=== PATIENT | female | born 1940 | race Caucasian/White ===

== ENCOUNTER → 2023-11-16 07:23 | Outpatient (REF) | payer MEDICARE, SELFPAY ==
[2023-11-16 09:06] LABS: % Basophils 0.6 % (0-2); % Eosinophils 1.5 % (0-6); % Immature Granulocytes 1.9 % (0-0.5); % Lymphocytes 15.3 % (20.5-51.1); % Monocytes 7.1 % (1.7-9.3); % Neutrophils 73.6 % (42.2-75.2); Absolute Eosinophils 0.1 10^3/uL (0-0.7); Absolute Immature Granulocytes 0.1 10^3/uL (0-0.05); Absolute Monocytes 0.5 10^3/uL (0.1-0.6); Hematocrit 40.8 % (37.0-47.0); Hemoglobin 13.6 g/dL (12.0-16.0); Mean Corp Hgb Conc. 33.3 g/dL (33.0-37.0); Mean Corpuscular Hgb 30.5 pg (27.0-31.0); Mean Corpuscular Volume 91.5 fL (81.0-99.0); Mean Platelet Volume 10.2 fL (7.4-10.4); Nucleated Red Blood Cells % 0 %; Platelet Count 116 10^3/uL (130-400); Red Blood Cell Count 4.46 10^6/uL (4.20-5.40); Red Cell Dist. Width 13.9 % (11.5-14.5); White Blood Cell Count 6.8 10^3/uL (4.8-10.8)
[2023-11-16 09:23] LABS: ALT (SGPT) 17 U/L (0-35); AST (SGOT) 30 U/L (14-36); Albumin 4.8 g/dl (3.5-5.0); Alkaline Phosphatase 86 U/L (38-126); Blood Urea Nitrogen 30 mg/dl (7-17); Calcium 10.2 mg/dl (8.4-10.2); Carbon Dioxide 29 mmol/L (22-30); Chloride 99 mmol/L (98-107); Glucose 88 mg/dl (70-99); HDL Cholesterol 70 mg/dl; LDL Cholesterol, Calculated 43 mg/dl; Potassium 5.3 mmol/L (3.5-5.1); Sodium 136 mmol/L (135-145); Total Bilirubin 0.6 mg/dl (0.2-1.3); Total Cholesterol 130 mg/dl (50-199); Total Protein 7.3 g/dl (6.3-8.2); Triglyceride 88 mg/dl (10-149); Very Low Density Lipoprotein 17 mg/dl (0-30); eGFR 44.36
[2023-11-16 09:48] LABS: Vitamin D, 25-OH*** 62.5 ng/mL (30-80)
[2023-11-16 10:01] LABS: TSH Reflex To Free T4 3.04 uIU/ml (0.47-4.68)
== END ==
LOC: REG 07:23
PROVIDERS: ATTENDING PHYSICIAN Nurse Practitioner Adult Health
DX: E55.9 Vitamin D deficiency, unspecified (principal); I10 Essential (primary) hypertension; E78.00 Pure hypercholesterolemia, unspecified; Z79.01 Long term (current) use of anticoagulants; Z86.711 Personal history of pulmonary embolism; I27.20 Pulmonary hypertension, unspecified
CPT/HCPCS: 36415; 80053; 80061; 82306; 84443; 85025

== ENCOUNTER → 2024-08-31 15:36 | Outpatient (REF) | payer MEDICARE, SELFPAY | LOC: REG 15:36 | PROVIDERS: ATTENDING PHYSICIAN Nurse Practitioner | DX: I71.9 Aortic aneurysm of unspecified site, without rupture (principal) | CPT/HCPCS: 36415; 82565 ==

== ENCOUNTER → 2024-09-28 15:54 | Outpatient (REF) | payer MEDICARE, SELFPAY | LOC: RAD 15:54 | PROVIDERS: ATTENDING PHYSICIAN Nurse Practitioner; FAMILY PHYSICIAN Nurse Practitioner Adult Health | DX: I71.9 Aortic aneurysm of unspecified site, without rupture (principal) | CPT/HCPCS: 71275; 74174; Q9967 ==

== ENCOUNTER → 2024-10-31 07:39 | Outpatient (REF) | payer MEDICARE, SELFPAY ==
[2024-10-31 08:51] LABS: Hematocrit 44.0 % (37.0-47.0); Hemoglobin 14.2 g/dL (12.0-16.0); Mean Corp Hgb Conc. 32.3 g/dL (33.0-37.0); Mean Corpuscular Volume 92.1 fL (81.0-99.0); Nucleated Red Blood Cells % 0 %; Platelet Count 96 10^3/uL (130-400); Red Cell Dist. Width 14.0 % (11.5-14.5)
[2024-10-31 09:15] LABS: ALT (SGPT) 17 U/L (0-35); AST (SGOT) 26 U/L (14-36); Albumin 4.4 g/dl (3.5-5.0); Alkaline Phosphatase 70 U/L (38-126); Blood Urea Nitrogen 24 mg/dl (7-17); Calcium 9.8 mg/dl (8.4-10.2); Carbon Dioxide 29 mmol/L (22-30); Chloride 104 mmol/L (98-107); Glucose 95 mg/dl (70-99); HDL Cholesterol 67 mg/dl; Potassium 5.1 mmol/L (3.5-5.1); Sodium 138 mmol/L (135-145); Very Low Density Lipoprotein 13 mg/dl (0-30); eGFR > 60.00
[2024-10-31 09:23] LABS: LDL Cholesterol, Calculated 29 mg/dl; Total Protein 6.9 g/dl (6.3-8.2)
== END ==
LOC: REG 07:39
PROVIDERS: ATTENDING PHYSICIAN Nurse Practitioner Adult Health
DX: I10 Essential (primary) hypertension (principal); C50.411 Malignant neoplasm of upper-outer quadrant of right female breast; M81.0 Age-related osteoporosis without current pathological fracture; E78.00 Pure hypercholesterolemia, unspecified; E55.9 Vitamin D deficiency, unspecified; E87.6 Hypokalemia
CPT/HCPCS: 36415; 80053; 80061; 84443; 85025

== ENCOUNTER 2024-12-28 18:53 | Inpatient (IN) | payer MEDICARE, SELFPAY ==
[2024-12-28] VITALS (7 sets, daily range): BP systolic 120–138; BP diastolic 57–101; PULSE 2–80; BMI 23.8; BMI 22.6
--- NOTE | 2024-12-28 15:24 | ED.GENMED ---
History of Present Illness
<Darwin Dueñas PA-C - Last Filed: 12/28/24 17:24>
General
Chief Complaint: Breathing Problem
Source: patient
Exam Limitations: none
Time Seen by Provider: 12/28/24 15:08
History of Present Illness
History of Present Illness:
84-year-old female with history of COPD coronary artery disease chronically on oxygen presents with worsening shortness of breath over the past 3 days. She denies chest pain or fever. She typically on 2 L of oxygen at daytime. Upon EMS arrival
she was hypoxic and labored in the 80s. They gave her DuoNeb. She was actually triaged here to be tachypneic and in the 70s. I was asked to come into the room for assessment. Since then she has been placed on a nonrebreather and she is feeling
better. She denies leg swelling. No vomiting. No other complaints
Past History
<Darwin Dueñas PA-C - Last Filed: 12/28/24 17:24>
Past History
ED Past Medical History: Hypercholesterolemia, Other (PVD) and Other (PVD)
ED Past Surgical History: Cholecystectomy
Social History
Tobacco: Smoker
Alcohol: None
Drug: None
Living: with family
Phy Exam
<ELISA Crowley Last Filed: 12/28/24 17:24>
Physical Exam
Physical Exam:
General: Well-developed female with increased work of breathing
HEENT: Normocephalic atraumatic
Heart: Regular rate and rhythm
Lungs: Diffuse inspiratory wheeze
Extremities: No cyanosis
Scores
<ELISA Crowley Last Filed: 12/28/24 17:24>
Heart Failure Risk
Heart Failure Risk Score: Not Applicable
Course
<Darwin Dueñas PA-C - Last Filed: 12/28/24 17:24>
Orders/Labs/Results
Orders:
Orders
12/28/24 15:03
Electrocardiogram (*1) Urgent
Reason for Study: Shortness of Breath
EKG- Treatment ONCE
12/28/24 15:13
Dexamethasone Sod Phosphate [Decadron] 10 mg IV NOW STA
Ipratropium/Albuterol Sulfate [Duoneb] 3 ml INH R NOW STA
12/28/24 15:21
Complete Blood Count/With Diff Urgent
Comprehensive Metabolic Panel Urgent
12/28/24 16:15
NT-proBNP Urgent
Troponin I Urgent
12/28/24 16:26
CR Chest Portable - 1 View Urgent
Comment:
Reason For Exam: sob
Reason Study Needs to be Portable: Patient Unstable
Abnormal Lab Results
12/28/24
15:21
MCHC 31.8 L g/dL
(33.0-37.0)
RDW 15.3 H %
(11.5-14.5)
Plt Count 88 L 10^3/uL
(130-400)
Abs Immat Gran (auto) 0.1 H 10^3/uL
(0-0.05)
Absolute Lymphs (auto) 0.7 L 10^3/uL
(1.2-3.4)
Immature Gran % 1.0 H %
(0-0.5)
Neutrophils % 79.0 H %
(42.2-75.2)
Lymphocytes % 10.7 L %
(20.5-51.1)
Carbon Dioxide 33 H mmol/L
(22-30)
BUN 26 H mg/dl
(7-17)
Creatinine 1.3 H mg/dL
(0.6-1.0)
12/28/24 15:21
12/28/24 15:21
Vital Signs
Initial and Last Documented VS:
Initial Vital Signs
Temp Pulse Resp BP Pulse Ox
97.3 F 74 35 137/60 70
12/28/24 15:07 12/28/24 15:07 12/28/24 15:07 12/28/24 15:07 12/28/24 15:07
Last Documented Vital Signs
Temp Pulse Resp BP Pulse Ox
97.3 F 74 23 131/59 92
12/28/24 15:07 12/28/24 17:15 12/28/24 17:15 12/28/24 17:00 12/28/24 17:15
<Evelyn Peña MD - Last Filed: 12/28/24 17:16>
Orders/Labs/Results
Orders:
Orders
12/28/24 15:03
Electrocardiogram (*1) Urgent
Reason for Study: Shortness of Breath
EKG- Treatment ONCE
12/28/24 15:13
Dexamethasone Sod Phosphate [Decadron] 10 mg IV NOW STA
Ipratropium/Albuterol Sulfate [Duoneb] 3 ml INH R NOW STA
12/28/24 15:21
Complete Blood Count/With Diff Urgent
Comprehensive Metabolic Panel Urgent
12/28/24 16:15
NT-proBNP Urgent
Troponin I Urgent
12/28/24 16:26
CR Chest Portable - 1 View Urgent
Comment:
Reason For Exam: sob
Reason Study Needs to be Portable: Patient Unstable
Abnormal Lab Results
12/28/24
15:21
MCHC 31.8 L g/dL
(33.0-37.0)
RDW 15.3 H %
(11.5-14.5)
Plt Count 88 L 10^3/uL
(130-400)
Abs Immat Gran (auto) 0.1 H 10^3/uL
(0-0.05)
Absolute Lymphs (auto) 0.7 L 10^3/uL
(1.2-3.4)
Immature Gran % 1.0 H %
(0-0.5)
Neutrophils % 79.0 H %
(42.2-75.2)
Lymphocytes % 10.7 L %
(20.5-51.1)
Carbon Dioxide 33 H mmol/L
(22-30)
BUN 26 H mg/dl
(7-17)
Creatinine 1.3 H mg/dL
(0.6-1.0)
12/28/24 15:21
12/28/24 15:21
Vital Signs
Initial and Last Documented VS:
Initial Vital Signs
Temp Pulse Resp BP Pulse Ox
97.3 F 74 35 137/60 70
12/28/24 15:07 12/28/24 15:07 12/28/24 15:07 12/28/24 15:07 12/28/24 15:07
Last Documented Vital Signs
Temp Pulse Resp BP Pulse Ox
97.3 F 74 23 131/59 92
12/28/24 15:07 12/28/24 17:15 12/28/24 17:15 12/28/24 17:00 12/28/24 17:15
<Darwin Dueñas PA-C - Last Filed: 12/28/24 17:24>
MDM/Problems Addressed
Differential Diagnosis Includes:
Respiratory difficulty. Consider COPD flare versus pneumonia. She is anticoagulated on Eliquis unlikely to be PE. She does not appear to be volume overloaded to suggest CHF. Will continue to administer supportive oxygen and will give DuoNeb.
Decadron ordered. Portable chest x-ray pending.
<Darwin Dueñas PA-C - Last Filed: 12/28/24 17:24>
*Pulse Oximetry
SaO2: 90
Nasal Cannula flow liters per minute: 6
Oxygen Mode of Delivery: Non-rebreather mask
Patient hypoxic: yes
*Critical Care Note
Total Time (30-74mins, 75-104mins- exclusive of procedures): Not Applicable
<Darwin Dueñas PA-C - Last Filed: 12/28/24 17:24>
Update Note
Update Note:
Patient appears comfortable now improved since initial evaluation. Currently on the mid flow requiring 8 L of oxygen where her baseline is usually 2. Chest x-ray without obvious significant finding. BNP and troponin within normal limits. Suspect
COPD flare. Will admit to hospital
ED Attending Note
<Darwin Dueñas PA-C - Last Filed: 12/28/24 17:24>
-
Portions of this chart may have been created with voice recognition software.� Occasional wrong word or��sound alike� substitutions may have occurred due to the inherent limitations of voice recognition software.
<Evelyn Peña MD - Last Filed: 12/28/24 17:16>
ED Attending Note
Patient seen and examined by attending physician: Yes
I performed the substantive portion of visit, reviewed & personally made and approve the management plan that is documented in note by myself or MARILYN.: Yes
ED Attending Note:
84-year-old female with complex prior medical history including thoracic and abdominal aneurysm repair, heart failure, PE, longstanding smoking history, who reports that she is fully anticoagulated. Both her and her daughter report a history of
increasing shortness of breath over the last few days. Daughter wanted her to come to the emergency department before today but patient was reluctant to do so, but got worse today prompting her visit here. Upon arrival, patient was noted to be in
respiratory distress with hypoxia. She was placed on a nonrebreather. Since that time, patient is markedly improved and is on nasal cannula, speaking in full sentences, without acute complaints. She denies recent new cough, fever, chills, sore
throat, chest pain or pressure, orthopnea, PND, abdominal pain, new back pain, or other complaints. On exam, patient awake alert in no respiratory distress, nasal cannula in place. Heart regular rate and rhythm. Lungs with scattered wheezing and
fine rales noted bibasilar, no retractions, no nasal flaring, speaks in full sentences easily. No leg swelling noted. Differential includes heart failure exacerbation, reactive airway disease/COPD exacerbation, ACS, pneumonia, etc. etc. BMP
troponin and chest x-ray pending at this time. Will continue to monitor closely.
Discharge Plan
Departure
Patient Disposition: Admit
Date of Disposition: 12/28/24
Time of Disposition: 17:23
Presentation/result/management discussed w/ accepting MD/DO: Hospitalist
Discharge Problem:
COPD exacerbation
Prescriptions:
No Action
denosumab [Prolia] 60 MG/ML syringe
60 mg SQ Q6M
Patient Comments:
pt takes every 6 months, cannot remember when it was taken last
atorvastatin 10 MG tablet
10 mg PO QPM
metoprolol succinate 100 MG tablet extended release 24 hr
100 mg PO DAILY
albuterol sulfate 1 PUFF HFA aerosol inhaler
1 puff inhalation R Q4HPRN PRN (Reason: SOB)
cholecalciferol (vitamin D3) 2,000 UNITS tablet
2,000 units PO DAILY
vitamin E (dl, acetate) 400 UNITS capsule
400 units PO DAILY
amlodipine 10 MG tablet
10 mg PO DAILY
cetirizine 10 MG tablet
10 mg PO DAILY
ipratropium-albuterol 3 ML solution for nebulization
3 ml inhalation R QID 30 Days Qty: 2 0RF
spironolactone 25 MG tablet
25 mg PO DAILY 30 Days Qty: 30 0RF
apixaban [Eliquis] 5 MG tablet
5 mg PO BID 30 Days Qty: 60 0RF
Referrals:
UNKNOWN - PT DOES,NOT KNOW [Family Provider]
Interventions
Interventions:
*Risk Screen - Suicide Last Done: 12/28/24 15:16
*General Assessment Last Done: 12/28/24 15:16
*Neglect/Abuse Screening Last Done: 12/28/24 15:16
*ED- Fall Risk Assessment Last Done: 12/28/24 15:16
*ED COVID-19 Vaccine History Last Done: 12/28/24 15:16
ED- Cardiac Assessment Last Done: 12/28/24 15:05
ED- Pulmonary Assessment Last Done: 12/28/24 15:05
Discharge Date and Time
Print Language: INDONESIAN
[2024-12-28] MEDS: DECADRON 10 MG IV (15:26)
[2024-12-28] MEDS: DUONEB 3 ML INH ×2 (15:26→21:14)
[2024-12-28 15:50] LABS: Hematocrit 39.3 % (37.0-47.0); Hemoglobin 12.5 g/dL (12.0-16.0); Mean Corp Hgb Conc. 31.8 g/dL (33.0-37.0); Mean Corpuscular Volume 93.6 fL (81.0-99.0); Nucleated Red Blood Cells % 0 %; Platelet Count 88 10^3/uL (130-400); Red Cell Dist. Width 15.3 % (11.5-14.5)
[2024-12-28 15:55] LABS: ALT (SGPT) 15 U/L (0-35); AST (SGOT) 22 U/L (14-36); Albumin 4.2 g/dl (3.5-5.0); Alkaline Phosphatase 75 U/L (38-126); Blood Urea Nitrogen 26 mg/dl (7-17); Calcium 9.7 mg/dl (8.4-10.2); Carbon Dioxide 33 mmol/L (22-30); Chloride 100 mmol/L (98-107); Estimated Creatinine Clearance 23 ml/min; Glucose 84 mg/dl (70-99); Potassium 4.6 mmol/L (3.5-5.1); Sodium 136 mmol/L (135-145); Total Protein 6.5 g/dl (6.3-8.2); eGFR 40.05
[2024-12-28 16:48] LABS: Troponin I < 0.012 ng/ml
--- NOTE | 2024-12-28 17:30 | HPS.HSE ---
Family Physician
-
Family Physician: NOT KNOW UNKNOWN - PT DOES
Chief Complaint
-
sob, hypoxia
History of Present Illness
84-year-old female complaining of worsening shortness of breath over the past 3 days. She has history of COPD typically wears 2 L of oxygen 24-hour dependent however her oxygen was noted to be in the 70% along with labored breathing. She was
placed on nonrebreather in the ER then changed to mid flow nasal cannula at 8 L with oxygen saturation 94%. She is an active smoker. She denies fever, chills, chest pain, palpitations, abdominal pain, nausea, vomiting, diarrhea, urinary symptoms.
She has past medical history COPD chornic 2 liters nc dependent , pulmonary HTN, chronic diastolic heart failure, HTN, HLD, thoracic aneurysm with stent repair, thrombocytopenia, PAD/right SFA stenting as well as left SFA stenting, ductal breast
hyperplasia left breast, right breast lumpectomy with radiation, basal cell carcinoma removal, vitreous detachment, coccyx removal due to dislocation, pelvic congestion syndrome, renal cysts
Medical History
Past Medical History
Past Medical History: Reports Other
Additional Past Medical History:
COPD chronic 2 L nasal cannula dependent
Former smoker 50-year 1 pack a day quit 2008
HTN�benign
Chronic diastolic heart failure
HLD
Chronic thrombocytopenia
Aortic/thoracic aneurysm with stent repair
PAD/right SFA stenting as well as left SFA stenting
Ductal breast hyperplasia left breast
Right breast lumpectomy with radiation
Basal cell carcinoma removal
vitreous detachment
Coccyx removal due to dislocation,
pelvic congestion syndrome
Renal cysts
Past Surgical History: Reports Other
Additional Past Surgical History:
PAD/right SFA stenting as well as left SFA stenting,
Ductal breast hyperplasia left breast
Right breast lumpectomy with radiation
Aortic/thoracic stenting 2017 . [facility]
Social History
Tobacco: Former Smoker (Former smoker 50-year 1 pack a day quit 2008)
Alcohol: None
Drug: None
Personal:
Living: With Family
Employment: Retired
Family History
Family History: Not pertinent
Allergies / Home Medications
Allergies reflects when Allergies were last updated in [facility].
Home Medications with original date entered in [facility]
Allergy/Medication List:
Allergies
Allergy/AdvReac Type Severity Reaction Status Date / Time
aspirin Allergy doesn't Verified 12/28/24 15:01
take -
'had
burning in
stomach',
nose bleeds
diphenhydramine HCl (From Allergy rash,felt Verified 12/28/24 15:01
Benadryl) like body
on fire
egg Allergy rash/facial Verified 12/28/24 15:01
swelling
Influenza Virus Vaccines Allergy fever, Verified 12/28/24 15:01
'very ill'
latex Allergy Rash Verified 12/28/24 15:01
Penicillins Allergy face Verified 12/28/24 15:01
swells,rash
valsartan Allergy rash on Verified 12/28/24 15:01
back
surgical tape Allergy infection Uncoded 12/28/24 15:01
after
coccyx
surgery a
long time
ago
Home Medications
denosumab 60 mg/mL subcutaneous syringe (Prolia) 60 mg SQ Q6M osteoporosis 02/14/17
amlodipine 10 mg tablet 10 mg PO DAILY Blood pressure 05/23/20
atorvastatin 10 mg tablet 10 mg PO DAILY High cholesterol 05/23/20
cholecalciferol (vitamin D3) 50 mcg (2,000 unit) tablet 2,000 units PO DAILY Supplement 05/23/20
metoprolol succinate 100 mg tablet,extended release 24 hr 100 mg PO DAILY Blood pressure 05/23/20
spironolactone 25 mg tablet 25 mg PO DAILY 30 days #30 tabs 06/01/20
albuterol sulfate 3 ml inhalation TID 12/28/24
apixaban 5 mg tablet (Eliquis) 5 mg PO DAILY 12/28/24
Review of Systems
-
History Source: Patient and Family (Daughter Gabriela at bedside)
A 12 point ROS was completed and negative except as noted: Yes
Constitutional: Denies Fatigue or Chills
EENT: Denies Sore Throat or Runny Nose
Respiratory: Reports Trouble Breathing (Shortness of breath with hypoxia); Denies Cough
Cardiac: Denies Chest Pain, Diaphoresis, Palpitations or Syncope
Abdomen/GI: Denies Abdominal Pain, Nausea, Vomiting, Diarrhea, Constipated or Bloody Stools
: Denies Dysuria, Frequency, Flank Pain or Incontinence
Musculoskeletal: Denies Joint Pain or Edema
Skin: Denies Itching or Rash
Neurological: Denies Dizzy, Headache or Weakness
Endocrine: Reports No Symptoms
Hematologic/Lymphatic: Reports No Symptoms
Psych: Reports Calm
Physical Exam
Vital Signs
Vital Signs
Temp Pulse Resp BP Pulse Ox
97.3 F 74 23 131/59 92
12/28/24 15:07 12/28/24 17:15 12/28/24 17:15 12/28/24 17:00 12/28/24 17:15
Physical Exam
General: Comfortable and Conversant; No Pain, Fever or Chills
HEENT: NormoCephalic, Anicteric, Moist mucous membranes, PERRLA, [place] Conjunctivae, No Ptosis and Oxygen (Mid flow 8 L)
Respiratory: Decreased Breath Sounds (Bilaterally throughout both lung white); No Wheezes, Rales or Rhonchi
Cardiac: S1/S2 and Regular Rhythm; No Murmur, Rub, Gallop or Peripheral Edema
Breast: Deferred by me
GI: Soft, Non Tender, Non Distended, Normal Bowel Sounds and No Hepatosplenomegaly
Rectal: Deferred by Provider
Genito-urinary: Deferred by me
Musculoskeletal: No Clubbing, No Cyanosis and No Edema
Skin: Warm and Dry; No Rash
Neuro: AO x 3, No Motor Deficits, Nonfocal/grossly intact, Cranial Nerves Intact and No Sensory Deficits; No Slurred Speech, Facial Droop, Tremors or Sedated
Psych: Calm
Laboratory Results
-
12/28/24 15:21
12/28/24 15:21
Laboratory Results
Total Bilirubin 0.6 mg/dl (0.2-1.3) 12/28/24 15:21
AST 22 U/L (14-36) 12/28/24 15:21
ALT 15 U/L (0-35) 12/28/24 15:21
Alkaline Phosphatase 75 U/L (38-126) 12/28/24 15:21
Troponin I < 0.012 ng/ml 12/28/24 16:15
Impression/Plan
-
Impression/plan:
Admit to telemetry
#Acute on chronic COPD exacerbation
#Acute on chronic hypoxic respiratory failure requiring chronic O2 2 L
#Former smoker 50-year 1 pack a day quit 2008
Typically requires 2 L currently on mid flow 8 L 94%
-IV Decadron 10 mg in ER will continue IV Decadron 4 mg every 6 hours
- Continue DuoNebs scheduled and as needed
#Sleep apnea
Patient uses trilogy CPAP full mask only 4 hours at night with 2 L O2
#CKD 3B�4
Creat 1.3 appears baseline, GFR 40
#HTN�benign
BP 131/59
- Continue metoprolol succinate 100 mg daily, amlodipine 10 mg daily
#Chronic diastolic heart failure
I/O, daily weights
Follows with [facility]
-Continue spironolactone 25 mg daily
2D echo 07/12/2021: EF 60%, normal LV S LVSF, mild LVH, normal diastolic function, trace MR/TR, PASP 20-25 mmHg
#HLD
Continue atorvastatin 10 mg daily
#Chronic thrombocytopenia
-PLT 88 baseline appears 96�1 16 since 2023
? History of paroxysmal A-fib per patient
Patient takes Eliquis 5 mg once a day only per her mail reader she states aliong with dasilvio JAIRO
#Aortic/thoracic aneurysm with stent repair 2016 [facility]
daughter reports is on eliqiuis 5mg daily for this but after 2020
#PAD/right SFA stenting as well as left SFA stenting
- Continue Lipitor
#Osteoporosis
Patient receives Prolia 60 mg SQ every 6 months
Continue vitamin D3 2000 units daily recommended calcium supplementation
Other PMH:
Ductal breast hyperplasia left breast 06/2017
Right breast lumpectomy with radiation
Basal cell carcinoma removal
vitreous detachment
coccyx removal due to dislocation,
pelvic congestion syndrome
renal cysts
DVT prophylaxis
Patient reports only takes Eliquis 5 mg in the a.m. per her mail reader
DNR per patient with daughter and present at bedside
--- NOTE | 2024-12-28 18:32 | W.PN.UPDATE ---
Addendum entered and electronically signed by Fawad Moreno MD 12/29/24 08:39:
Laboratory Tests
05/26/20 05/27/20
13:56 15:07
pH 7.27 L
pCO2 65 H
pO2 42 L*
HCO3 29.8 H
ABG O2 Sat (Measured) 71.6 L
VBG pH 7.21 L
VBG pCO2 84 H*
VBG pO2 87 H
VBG HCO3 33.6 H
VBG O2 Sat (Tim) 94.3
- stable mentation
- Start BiPAP 15 since last night
- f/u repeat VBG
- await Pul evaluation
Addendum entered and electronically signed by Fawad Moreno MD 12/28/24 19:40:
CORRECTION:
HX HFpEF Diastolic CHF
- Clinically not suggestive of acute HF - proBNP 1590 compare to in 2020 with acute HF
- TTE in AM ( Last TTE was 2022 ) <del>c/w</del> <del>Spironolactone</del>
- Hold Spironolactone due to EASTON
EASTON due to spironolactone <del>cardiorenal</del> <del>syndrome</del> <del>?</del>
- Hold Spironolactone due to EASTON
- Observe Cr
Original Note:
Update Note
Progress Note Update
This note serves as an addendum to the H&P by soda clerk MARILYN�
Bernice Lucrecia
HPI
84F Former smoker , chr 2L NC O2 depedent COPD, mild emphysema, PHT, PAD s/p stent , thoracic AA, HTN, HLD see at ER:
- worsening shortness of breath over the past 3 days
- denies chest pain or fever.
- Upon EMS arrival she was hypoxic and labored in the 80s
Tx with DuoNeb. She was actually triaged here to be tachypneic and in the 70s.
- placed on a nonrebreather and she is feeling better.
- She denies leg swelling. No vomiting. No other complaints
Relevant VS
Vital Signs
Temp Pulse Resp BP Pulse Ox
97.3 F 79 24 124/101 94
12/28/24 15:07 12/28/24 18:15 12/28/24 18:15 12/28/24 18:00 12/28/24 18:15
PE
Gen: NAD, not toxic , mentating approrpaitely
Neck: no JVD
Lungs: exp wheeze and rhonchi + in both lungs
Cor: RRR S1 S2
Abdomen:�soft NT NG
BINGO MANAGER: AAO3
MS:no edema
Psych: nl mood and affect
Relevant Data
10/31/24 12/28/24 12/28/24
08:06 15:21 16:15
WBC 6.2
Hgb 12.5
Plt Count 96 L 88 L
Carbon Dioxide 29 33 H
BUN 26 H
Creatinine 0.9 1.3 H
eGFR > 60.00 40.05
Troponin I < 0.012
05/23/20 12/28/24
[id number] Pept 159
Pending VBG
Pending Covid
Pending Flu A & B
CXR: pending report
07/12/2021 TTE
Normal left ventricular chamber size. Normal left ventricular systolic
function. Left ventricular ejection fraction is 60%.
Mild concentric left ventricular hypertrophy.
Normal diastolic function.
Normal right ventricular size and function.
Trace mitral regurgitation.
Trace tricuspid regurgitation.
Estimated pulmonary artery pressure of 20-25 mmHg assuming a right atrial pressure of 3 mmHg.
Last hospitalist admission: DATE OF ADMISSION: 05/23/2020 - DATE OF DISCHARGE: 06/01/2020
PRIMARY DIAGNOSES:
1. Acute hypoxic hypercapnic respiratory failure secondary to pulmonary edema and acute pulmonary embolism.
2. Acute pulmonary embolism.
3. Acute diastolic heart failure exacerbation.
4. Non myocardial infarction troponin elevation.
5. Acute kidney injury.
6. Hyperkalemia.
7. Hypokalemia.
8. Thrombocytopenia.
ASSESSMENT & PLAN
Acute on chr hypercarbia concerning for worsening chronic CO2 retention
Chronic Hypoxic Hypercapnic RF with acute elemnt suspect COPD flare
HX emphysema
HX much improved PHT per last TTE in 2022
- check VBG
- Pending Covid
- Pending Flu A & B
- pending final CXR report
- Goal POx is 88 % and above to preserved necessary hypoxic drive
- IV Decadron 4mg q8h
- DuoNeb qid and PRN
- Pul consulted (Known to Dr Ling)
HX HFpEF Diastolic CHF
- Clinically not suggestive of acute HF - proBNP 1590 compare to 39670 in 2020 with acute HF
- TTE in AM ( Last TTE was 2022 )
- c/w Spironolactone
EASTON possibly cardio-renal syndrome ?
- Observe Cr
Thrombocytopenia known chronicity or etiology.
TEVAR at [facility] 2016
right SFA stent and PTCA popliteal 2013
DVT Px: Eliquis
DNR
IP TLM
[2024-12-28] MEDS: DECADRON 4 MG IV (23:57)
[2024-12-29] VITALS (8 sets, daily range): BP systolic 93–146; BP diastolic 50–77; PULSE 2–80; O2SAT 92
--- NOTE | 2024-12-29 04:15 | TRANSFER ---
Pt transferred to 3W from ed, pulled over from stretcher to hospital bed. Pt AAOx3, Daughter at bedside, Pt oriented to unit, call escobar within reach, plan of care ongoing.
--- NOTE | 2024-12-29 07:36 | W.PN.HOSP.TC ---
Today's Communication/Plan
-
Pulmonology consult.
Start antibiotic
PT consult
Assessment / Plan
Assessment / Plan
Impression:
84-year-old female complaining of worsening shortness of breath over the past 3 days. She has history of COPD typically wears 2 L of oxygen 24-hour dependent however her oxygen was noted to be in the 70% along with labored breathing. She was
placed on nonrebreather in the ER then changed to mid flow nasal cannula at 8 L with oxygen saturation 94%, admitted to the hospital and started on IV steroid.
Chest x-ray shows pneumonia.
Wean down oxygen to 6 L/min
Assessment/plan:
Acute on chronic hypercapnic respiratory failure, secondary to acute COPD exacerbation/pneumonia
Patient presented with shortness of breath worsening over the last 3 days
Patient wears 2 L of oxygen at the time, was hypoxic on presentation to 80s, received DuoNebs.
Patient was tachypneic.
Initially placed on nonrebreather in the ER and was feeling better.
Chest x-ray done in the ER shows findings suggesting mild left lower lobe pneumonia
Negative influenza A&B, pending Covid
Started on IV steroid, DuoNebs
Pulmonary consulted.
Will start Rocephin/Zithromax
Chronic diastolic CHF
No acute exacerbation.
Continue metoprolol
CKD 3b
Avoid nephrotoxins.
Monitor creatinine
History of hypertension
Continue home meds
History of paroxysmal A-fib.
Continue Eliquis
Chronic thrombocytopenia.
Monitor platelet
TEVAR at [facility] 2016
right SFA stent and PTCA popliteal 2013
CODE STATUS: Full code
DVT prophylaxis: Eliquis
Diet: cardiac diet
Family communication: Discussed with daughter at bedside
Disposition: Pulmonology consult.
Start antibiotic.
PT consult
Total time spent on today's encounter was 65 minutes which included time spent in counseling the patient/family regarding diagnosis and treatment plan as listed above, goals of care, and symptom management. Case was discussed with nursing staff,
specialists, and care coordinators/case management. All labs and imaging personally reviewed by me. Remainder the time spent in detailed review of previous records, lab data, imaging, and other medical provider documentation.
Anticipated Discharge: 24 - 48 hours
Subjective/Interval History
-
Date of Service: December 29, 2024
Patient seen and examined at bedside, denies any chest pain , shortness of breath Improved, no abdominal pain, no nausea, no vomiting, no diarrhea or constipation.
Daughter at bedside.
Objective Data
-
Labs:
Laboratory Results
12/29/24
07:34
WBC Pending
Hgb Pending
Hct Pending
Plt Count Pending
Sodium Pending
Potassium Pending
Chloride Pending
Carbon Dioxide Pending
BUN Pending
Creatinine Pending
Glucose Pending
Calcium Pending
Total Bilirubin Pending
AST Pending
ALT Pending
Alkaline Phosphatase Pending
Vital Signs:
Vital Signs
Temp Pulse Resp BP Pulse Ox
98.1 F 82 19 121/59 98
12/29/24 07:00 12/29/24 07:00 12/29/24 07:00 12/29/24 07:00 12/29/24 07:00
Physical Exam
-
General: Well Developed, Well Nourished, No Apparent Distress and Comfortable
HEENT: Normocephalic, Atraumatic, Moist Mucous Membranes, No Ptosis, PERRLA and Nose Appears Normal
Respiratory: Rales, Rhonchi and Non Labored Respirations
Cardiac: Regular Rhythm and S1/S2
Breast: Deferred by me
GI: Soft, Nontender, Nondistended and Normal Bowel Sounds
Genito-urinary: No Costovertebral Tender
Musculoskeletal: No Clubbing, No Cyanosis and No Edema
Skin: Warm
Neuro: Awake, Alert, Oriented, AO x 3 and No Motor Deficits
Psych: Calm
Data Reviewed
-
Diagnostic Radiology: Image personally visualized and interpreted and Report Reviewed by me
CT Scan: Image personally visualized and interpreted and Report Reviewed by me
Ultrasound: Image personally visualized and interpreted and Report Reviewed by me
MRI: Image personally visualized and interpreted and Report Reviewed by me
Medical Tests (Nuc Med, Echo etc): Image personally visualized and interpreted and Report Reviewed by me
Labs: Labs Reviewed by me
Old Records: Reviewed
[2024-12-29] MEDS: DUONEB 3 ML INH ×4 (08:08→20:25)
[2024-12-29 08:27] LABS: Hematocrit 42.4 % (37.0-47.0); Hemoglobin 13.0 g/dL (12.0-16.0); Mean Corp Hgb Conc. 30.7 g/dL (33.0-37.0); Mean Corpuscular Volume 96.4 fL (81.0-99.0); Nucleated Red Blood Cells % 0 %; Platelet Count 101 10^3/uL (130-400); Red Cell Dist. Width 14.9 % (11.5-14.5)
[2024-12-29 08:50] LABS: ALT (SGPT) 16 U/L (0-35); AST (SGOT) 21 U/L (14-36); Albumin 4.4 g/dl (3.5-5.0); Alkaline Phosphatase 72 U/L (38-126); Blood Urea Nitrogen 27 mg/dl (7-17); Calcium 9.9 mg/dl (8.4-10.2); Carbon Dioxide 32 mmol/L (22-30); Chloride 100 mmol/L (98-107); Estimated Creatinine Clearance 28 ml/min; Glucose 129 mg/dl (70-99); Potassium 5.2 mmol/L (3.5-5.1); Sodium 139 mmol/L (135-145); Total Protein 6.8 g/dl (6.3-8.2); eGFR 48.94
[2024-12-29] MEDS: DECADRON 4 MG IV ×2 (09:05→16:14)
[2024-12-29] MEDS: LIPITOR 10 MG PO (09:05)
[2024-12-29] MEDS: ELIQUIS 5 MG PO (09:05)
[2024-12-29] MEDS: VITAMIN D3 (cholecalciferol) 50 MCG PO (09:05)
[2024-12-29] MEDS: TOPROL XL 100 MG PO (09:05)
[2024-12-29 10:00] LABS: COVID-19 Antigen Negative (Negative)
[2024-12-29] MEDS: ZITHROMAX 500 MG PO (12:49)
[2024-12-29] MEDS: ROCEPHIN 1000 MG IV (12:52)
[2024-12-29] MEDS: STERILE WATER FOR INJECTION 10 ML IV (12:53)
[2024-12-29] MEDS: ELIQUIS 2.5 MG PO (20:40)
[2024-12-30] VITALS (8 sets, daily range): BP systolic 128–158; BP diastolic 69–81; PULSE 2–85; O2SAT 95; BMI 22.4
[2024-12-30] MEDS: DECADRON 4 MG IV ×4 (00:47→23:17)
[2024-12-30 05:59] LABS: Hematocrit 38.3 % (37.0-47.0); Hemoglobin 12.1 g/dL (12.0-16.0); Mean Corp Hgb Conc. 31.6 g/dL (33.0-37.0); Mean Corpuscular Volume 93.6 fL (81.0-99.0); Nucleated Red Blood Cells % 0 %; Platelet Count 105 10^3/uL (130-400); Red Cell Dist. Width 14.9 % (11.5-14.5)
[2024-12-30 06:16] LABS: ALT (SGPT) 14 U/L (0-35); AST (SGOT) 20 U/L (14-36); Albumin 3.8 g/dl (3.5-5.0); Alkaline Phosphatase 66 U/L (38-126); Blood Urea Nitrogen 32 mg/dl (7-17); Calcium 9.7 mg/dl (8.4-10.2); Carbon Dioxide 35 mmol/L (22-30); Chloride 99 mmol/L (98-107); Estimated Creatinine Clearance 34 ml/min; Glucose 142 mg/dl (70-99); Potassium 5.6 mmol/L (3.5-5.1); Sodium 135 mmol/L (135-145); Total Protein 6.2 g/dl (6.3-8.2); eGFR > 60.00
[2024-12-30] MEDS: DUONEB 3 ML INH ×4 (07:31→19:14)
[2024-12-30] MEDS: VITAMIN D3 (cholecalciferol) 50 MCG PO (09:57)
[2024-12-30] MEDS: ZITHROMAX 500 MG PO (09:57)
[2024-12-30] MEDS: TOPROL XL 100 MG PO (09:57)
[2024-12-30] MEDS: ELIQUIS 2.5 MG PO ×2 (09:58→21:42)
[2024-12-30] MEDS: LIPITOR 10 MG PO (09:58)
--- NOTE | 2024-12-30 11:27 | W.PN.HOSP.TC ---
Today's Communication/Plan
-
Wean oxygen and steroids.
Possible discharge in am.
Assessment / Plan
Assessment / Plan
Impression:
84-year-old female complaining of worsening shortness of breath over the past 3 days. She has history of COPD typically wears 2 L of oxygen 24-hour dependent however her oxygen was noted to be in the 70% along with labored breathing. She was
placed on nonrebreather in the ER then changed to mid flow nasal cannula at 8 L with oxygen saturation 94%, admitted to the hospital and started on IV steroid.
Chest x-ray shows pneumonia.
Wean down oxygen to 6 L/min
12/29
Patient back to baseline 2 L
Assessment/plan:
Acute on chronic hypercapnic respiratory failure, secondary to acute COPD exacerbation/pneumonia
Patient presented with shortness of breath worsening over the last 3 days
Patient wears 2 L of oxygen at the time, was hypoxic on presentation to s, received DuoNebs.
Patient was tachypneic.
Initially placed on nonrebreather in the ER and was feeling better.
Chest x-ray done in the ER shows findings suggesting mild left lower lobe pneumonia
Negative influenza A&B, pending Covid
Started on IV steroid, DuoNebs
Pulmonary consulted.
Will start Rocephin/Zithromax
12/29
Patient back to baseline 2 L
Chronic diastolic CHF
No acute exacerbation.
Continue metoprolol
CKD 3b
Avoid nephrotoxins.
Monitor creatinine
History of hypertension
Continue home meds
History of paroxysmal A-fib.
Continue Eliquis
Chronic thrombocytopenia.
Monitor platelet
TEVAR at [facility] 2016
right SFA stent and PTCA popliteal 2013
CODE STATUS: Full code
DVT prophylaxis: Eliquis
Diet: cardiac diet
Family communication: Discussed with daughter at bedside
Disposition: Wean oxygen and steroids.
Possible discharge in am.
Total time spent on today's encounter was 65 minutes which included time spent in counseling the patient/family regarding diagnosis and treatment plan as listed above, goals of care, and symptom management. Case was discussed with nursing staff,
specialists, and care coordinators/case management. All labs and imaging personally reviewed by me. Remainder the time spent in detailed review of previous records, lab data, imaging, and other medical provider documentation.
Anticipated Discharge: Within 24 hours
Subjective/Interval History
-
Date of Service: December 30, 2024
Patient seen and examined at bedside, denies any chest pain, her oxygen requirement now at 2 L which is baseline, her shortness of breath improved, no abdominal pain, no nausea, no vomiting, no diarrhea or constipation.
Objective Data
-
Labs:
Laboratory Results
12/30/24
05:34
WBC 10.5
Hgb 12.1
Hct 38.3
Plt Count 105 L
Sodium 135
Potassium 5.6 H
Chloride 99
Carbon Dioxide 35 H
BUN 32 H
Creatinine 0.9
Glucose 142 H
Calcium 9.7
Total Bilirubin 0.5
AST 20
ALT 14
Alkaline Phosphatase 66
Vital Signs:
Vital Signs
Temp Pulse Resp BP Pulse Ox
98.4 F 81 14 128/69 93
12/30/24 11:08 12/30/24 11:08 12/30/24 11:08 12/30/24 11:08 12/30/24 11:08
I&O
12/29/24 12/30/24 12/31/24
06:59 06:59 06:59
Intake Total 1140 / 1140
Balance 1140 / 1140
Physical Exam
-
General: Well Developed, Well Nourished, No Apparent Distress and Comfortable
HEENT: Normocephalic, Atraumatic, Moist Mucous Membranes, No Ptosis, PERRLA and Nose Appears Normal
Respiratory: Rales, Rhonchi and Non Labored Respirations
Cardiac: Regular Rhythm and S1/S2
Breast: Deferred by me
GI: Soft, Nontender, Nondistended and Normal Bowel Sounds
Genito-urinary: No Costovertebral Tender
Musculoskeletal: No Clubbing, No Cyanosis and No Edema
Skin: Warm
Neuro: Awake, Alert, Oriented, AO x 3 and No Motor Deficits
Psych: Calm
--- NOTE | 2024-12-30 11:59 | CON.PUL ---
Consultation
Consultation Request
Date/Time Consultation Requested: 12/30/2024
Date/Time Consultation Performed: 12/30/2024
Requesting Provider: Dr. Lundberg
Performing Provider: Dr. Khang Daniels
Reason for Consultation: Acute exacerbation of COPD
Medical History
-
Chief Complaint: Exertional dyspnea
History of Present Illness:
84-year-old woman with past medical history significant for emphysema, chronic hypoxemic respiratory failure on 2 L supplemental oxygen. She was noted to be hypoxemic with a pulse ox down to 70% associated with increased shortness of breath.
Oxygen requirements up to 8 L nasal cannula to improve pulse ox to 94%.
Patient states that she quit smoking in 2008.
Last admission to the hospital was 2020. Per records here at [facility].
Denies purulent sputum production, fevers, night sweats, hemoptysis or weight loss.
Past Medical History
Past Medical History: Other (See assessment and plan)
Social History
Tobacco: Former Smoker ([id number] history quit in 2008)
Alcohol: None
Drug: None
Personal:
Living: With Family
Employment: Retired
Family History
Family History: Reviewed & Not Pertinent
Allergies / Home Medications
Allergies
Allergy/AdvReac Type Severity Reaction Status Date / Time
aspirin Allergy doesn't Verified 12/28/24 15:01
take -
'had
burning in
stomach',
nose bleeds
diphenhydramine HCl (From Allergy rash,felt Verified 12/28/24 15:01
Benadryl) like body
on fire
egg Allergy rash/facial Verified 12/28/24 15:01
swelling
Influenza Virus Vaccines Allergy fever, Verified 12/28/24 15:01
'very ill'
latex Allergy Rash Verified 12/28/24 15:01
Penicillins Allergy face Verified 12/28/24 15:01
swells,rash
valsartan Allergy rash on Verified 12/28/24 15:01
back
surgical tape Allergy infection Uncoded 12/28/24 15:01
after
coccyx
surgery a
long time
ago
Home Medications
�Medication �Instructions �Recorded �Confirmed �Last Taken �Type
denosumab 60 mg/mL subcutaneous 60 mg SQ Q6M osteoporosis 02/14/17 12/28/24 Unknown History
syringe (Prolia)
amlodipine 10 mg tablet 10 mg PO DAILY Blood pressure 05/23/20 12/28/24 12/28/24 09:00 History
atorvastatin 10 mg tablet 10 mg PO DAILY High cholesterol 05/23/20 12/28/24 12/28/24 09:00 History
cholecalciferol (vitamin D3) 50 2,000 units PO DAILY Supplement 05/23/20 12/28/24 12/28/24 09:00 History
mcg (2,000 unit) tablet
metoprolol succinate 100 mg 100 mg PO DAILY Blood pressure 05/23/20 12/28/24 12/28/24 09:00 History
tablet,extended release 24 hr
spironolactone 25 mg tablet 25 mg PO DAILY 30 days #30 tabs 06/01/20 12/28/24 12/28/24 09:00 Rx
albuterol sulfate 3 ml inhalation TID Lung/Breathing 12/28/24 12/28/24 12/28/24 09:00 History
Issues
apixaban 5 mg tablet (Eliquis) 5 mg PO DAILY AFIB 12/28/24 12/28/24 12/28/24 09:00 History
Review of Systems
-
History Source: Patient
All other systems: Negative unless noted
Vitals / Labs / Diagnostic Testing
Vital Signs
Temp Pulse Resp BP Pulse Ox
98.4 F 74 16 128/69 94
12/30/24 11:08 12/30/24 11:26 12/30/24 11:26 12/30/24 11:08 12/30/24 11:28
Lab Data
12/30/24 05:34
12/30/24 05:34
Microbiology
12/29/24 09:14 Nasal Swab Influenza Types A & B (TAMICA) - Final
Negative for Influenza A & B, NAAT
Negative results must be combined with clinical observations
and patient history.
Nucleic Acid Amplification test (NAAT)performed on the
[employer] NOW platform.
Diagnostic Testing:
Physical Exam
-
HEENT: Normocephalic
Cardiovascular: S1/S2
Respiratory: Wheeze (Minimal expiratory), Rales and Non-Labored Respirations
GI: Soft and Non Distended
Neurology: Awake, Alert, Oriented and AO x 3
Skin: Warm
General: Comfortable
Assessment
-
84-year-old woman with history of COPD, chronic hypoxemic respiratory failure, multiple other cardiac comorbidities, admitted with shortness of breath and worsening hypoxemia. Found to be bronchospastic diagnosed with acute exacerbation of COPD.
Chest x-ray was abnormal with a left lower lobe abnormality. We were consulted for ongoing therapy and evaluation on 12/30/2024.
Acute exacerbation of COPD
Acute on chronic hypoxemic respiratory failure usually on 2 L-now up to 8 L nasal cannula.
Chest x-ray 12/28/2024: Left lower lobe infiltrate cannot rule out pneumonia versus atelectasis from patient's aortic aneurysm.
CT chest 09/28/2024: Biapical pleural-parenchymal scarring and mild centrilobular emphysema. Compressive atelectasis within the left lower lobe secondary to patient's aneurysm. No pleural effusions or pneumothorax.
Conditions present prior to admission:
Orthostasis
COPD/emphysema
Follows up Dr. Ling last visit 08/2024
Poor inhaler technique
On DuoNebs 3 times a day
Baseline oxygen requirements 3 L with ambulation.
Spirometry 05/13/2023: FEV1 0.83 L / 54%, FVC 58%, FEV1/FVC ratio 63%. Moderate COPD
s/p TEVAR at [facility] 2017
Decreased left lung volume due to aortic stent graft position
Severe lifestyle-limiting right leg claudication and PVD s/p right SFA stent and left.
R breast cancer s/p lumpectomy, reconstruction with advanced flap, sentinel lymph node biopsy 08/02/17
Grade 1, Stage Ia,T1c, N0, M0 invasive lobular carcinoma.
Completed radiation September 2017, patient refused Letrozole
HTN
Atrial fibrillation on chronic anticoagulation.
Hypercholesterolemia
Heart failure with preserved ejection fraction.
2D echo 07/12/2021: EF 60%, normal LV S LVSF, mild LVH, normal diastolic function, trace MR/TR, PASP 20-25 mmHg
PVD
Cholecystectomy
Chronic hypercapnic respiratory failure/obstructive sleep apnea on PAP therapy - Trilogy
Former smoker 50 pack years-quit in 2008.
Assessment and plan:
Clinical picture suggestive of acute exacerbation of COPD-possibly triggered by pneumonia.
Clinically feels better today 12/30/2024 to my evaluation.
Minimal wheezing on exam
Bibasilar crackles noted
Chest x-ray reviewed patient has significant left lower lobe abnormality possibly from aortic aneurysm. But definitely chest x-ray looks worse compared to prior.
Currently afebrile
No significant leukocytosis
Continue to monitor.
-
Not unreasonable to treat for 5 to 7 days with antibiotics. Continue IV antibiotics for today and if clinically improved can consider transition to orals tomorrow.
Sputum culture if able
Blood culture will be sent If patient develops fevers
Microbiology so far negative: Influenza and COVID checked negative.
Has not been able to produce a sputum
-
Continue therapy for acute exacerbation of COPD.
IV corticosteroids-hopefully can transition to oral prednisone tomorrow. 40 mg and decrease by 48 hours to off.
DuoNebs-continue.
Patient not on inhalers in the outpatient as she has poor inhaler technique.
Baseline oxygen is 3 L with ambulation, initially on 8 L-currently down to 2 L at rest.
Incentive spirometry encouraged
-
Patient does have history of diastolic dysfunction
Moderately elevated proBNP
At this point no evidence for volume overload but will need to follow closely.
Continue anticoagulation-? History of A-fib.
Continue telemetry monitoring
-
Chronic hypercapnic respiratory failure.
Mental status at baseline
Patient may use her Trilogy while in the hospital if she can bring it.
If not available may use BiPAP temporarily while in the hospital- monitor metabolic alkalosis.
Avoid sedatives
-
Physical therapy/Occupational Therapy.
-
Will follow
-
Follow-up with Dr. Ling after DC
[2024-12-30] MEDS: ROCEPHIN 1000 MG IV (12:05)
[2024-12-30] MEDS: STERILE WATER FOR INJECTION 10 ML IV (12:05)
[2024-12-31] VITALS (8 sets, daily range): BP systolic 125–163; BP diastolic 64–94; PULSE 2–80; O2SAT 92; BMI 22.2
[2024-12-31 07:48] LABS: Hematocrit 40.8 % (37.0-47.0); Hemoglobin 12.8 g/dL (12.0-16.0); Mean Corp Hgb Conc. 31.4 g/dL (33.0-37.0); Mean Corpuscular Volume 93.8 fL (81.0-99.0); Nucleated Red Blood Cells % 0 %; Platelet Count 121 10^3/uL (130-400); Red Cell Dist. Width 15.0 % (11.5-14.5)
[2024-12-31 07:56] LABS: ALT (SGPT) 17 U/L (0-35); AST (SGOT) 23 U/L (14-36); Albumin 4.1 g/dl (3.5-5.0); Alkaline Phosphatase 65 U/L (38-126); Blood Urea Nitrogen 34 mg/dl (7-17); Calcium 9.6 mg/dl (8.4-10.2); Carbon Dioxide 36 mmol/L (22-30); Chloride 97 mmol/L (98-107); Estimated Creatinine Clearance 34 ml/min; Glucose 120 mg/dl (70-99); Potassium 6.2 mmol/L (3.5-5.1); Sodium 135 mmol/L (135-145); Total Protein 6.4 g/dl (6.3-8.2); eGFR > 60.00
[2024-12-31] MEDS: DUONEB 3 ML INH ×4 (07:57→19:30)
[2024-12-31] MEDS: ELIQUIS 2.5 MG PO ×2 (08:30→21:08)
[2024-12-31] MEDS: DECADRON 4 MG IV (08:30)
[2024-12-31] MEDS: VITAMIN D3 (cholecalciferol) 50 MCG PO (08:30)
[2024-12-31] MEDS: TOPROL XL 100 MG PO (08:30)
[2024-12-31] MEDS: LIPITOR 10 MG PO (08:30)
[2024-12-31] MEDS: ZITHROMAX 500 MG PO (08:30)
[2024-12-31] MEDS: LOKELMA 10 GRAM PO (08:31)
[2024-12-31 10:57] LABS: Glucose - Point of Care 166 mg/dl (70-99)
[2024-12-31] MEDS: DEXTROSE 50% SYRINGE 25 GRAMS IV (11:27)
[2024-12-31] MEDS: NOVOLIN R 0.1 UNITS IV (11:29)
[2024-12-31] MEDS: ROCEPHIN 1000 MG IV (11:39)
[2024-12-31] MEDS: STERILE WATER FOR INJECTION 10 ML IV (11:39)
[2024-12-31 12:49] LABS: Glucose - Point of Care 201 mg/dl (70-99)
--- NOTE | 2024-12-31 12:54 | W.PN.HOSP.TC ---
Today's Communication/Plan
-
Monitor potassium level
EKG
Assessment / Plan
Assessment / Plan
Impression:
84-year-old female complaining of worsening shortness of breath over the past 3 days. She has history of COPD typically wears 2 L of oxygen 24-hour dependent however her oxygen was noted to be in the 70% along with labored breathing. She was
placed on nonrebreather in the ER then changed to mid flow nasal cannula at 8 L with oxygen saturation 94%, admitted to the hospital and started on IV steroid.
Chest x-ray shows pneumonia.
Wean down oxygen to 6 L/min
12/29
Patient back to baseline 2 L
12/31
Significant hyperkalemia at 6.2, status post Lokelma insulin/dextrose
Assessment/plan:
Acute on chronic hypoxic/hypercapnic respiratory failure, secondary to acute COPD exacerbation/pneumonia
Patient presented with shortness of breath worsening over the last 3 days
Patient wears 2 L of oxygen at the time, was hypoxic on presentation to 80s, received DuoNebs.
Patient was tachypneic.
Initially placed on nonrebreather in the ER and was feeling better.
Chest x-ray done in the ER shows findings suggesting mild left lower lobe pneumonia
Negative influenza A&B, pending Covid
Started on IV steroid, DuoNebs
Pulmonary consulted.
Will start Rocephin/Zithromax
12/29
Patient back to baseline 2 L
12/31
Significant hypoxia with ambulation, back to baseline at rest
Significant hyperkalemia.
Potassium level 6.2.
Status post Lokelma insulin/dextrose
Repeat potassium level pending.
Obtain EKG.
Chronic diastolic CHF
No acute exacerbation.
Continue metoprolol
CKD 3b
Avoid nephrotoxins.
Monitor creatinine
History of hypertension
Continue home meds
History of paroxysmal A-fib.
Continue Eliquis
Chronic thrombocytopenia.
Monitor platelet
TEVAR at [facility] 2016
right SFA stent and PTCA popliteal 2013
CODE STATUS: Full code
DVT prophylaxis: Eliquis
Diet: cardiac diet
Family communication: Discussed with daughter at bedside
Disposition: Monitor potassium level
Total time spent on today's encounter was 65 minutes which included time spent in counseling the patient/family regarding diagnosis and treatment plan as listed above, goals of care, and symptom management. Case was discussed with nursing staff,
specialists, and care coordinators/case management. All labs and imaging personally reviewed by me. Remainder the time spent in detailed review of previous records, lab data, imaging, and other medical provider documentation.
Anticipated Discharge: 24 - 48 hours
Subjective/Interval History
-
Date of Service: December 31, 2024
Patient seen and examined at bedside, denies any chest pain patient had shortness of breath with exertion and oxygen dropped.
Also noted to have hyperkalemia with potassium level of 6.2.
Received Lokelma, insulin/dextrose and repeat potassium level pending.
Objective Data
-
Labs:
Laboratory Results
12/31/24 12/31/24
06:46 12:36
WBC 9.2
Hgb 12.8
Hct 40.8
Plt Count 121 L
Sodium 135
Potassium 6.2 H* Pending
Chloride 97 L
Carbon Dioxide 36 H
BUN 34 H
Creatinine 0.9
Glucose 120 H
Calcium 9.6
Total Bilirubin 0.6
AST 23
ALT 17
Alkaline Phosphatase 65
Vital Signs:
Vital Signs
Temp Pulse Resp BP Pulse Ox
98.2 F 69 16 141/70 94
12/31/24 11:00 12/31/24 11:00 12/31/24 11:00 12/31/24 11:00 12/31/24 11:00
I&O
12/30/24 12/31/24 01/01/25
06:59 06:59 06:59
Intake Total 1140 / 1140 1020 / 1020
Balance 1140 / 1140 1020 / 1020
Physical Exam
-
General: Well Developed, Well Nourished, No Apparent Distress and Comfortable
HEENT: Normocephalic, Atraumatic, Moist Mucous Membranes, No Ptosis, PERRLA and Nose Appears Normal
Respiratory: Rales, Rhonchi and Non Labored Respirations
Cardiac: Regular Rhythm and S1/S2
Breast: Deferred by me
GI: Soft, Nontender, Nondistended and Normal Bowel Sounds
Genito-urinary: No Costovertebral Tender
Musculoskeletal: No Clubbing, No Cyanosis and No Edema
Skin: Warm
Neuro: Awake, Alert, Oriented, AO x 3 and No Motor Deficits
Psych: Calm
--- NOTE | 2024-12-31 14:03 | W.PN.PUL3 ---
Today's Communication / Plan
-
Transition to oral prednisone
Continue antibiotics-complete total of 5 to 7 days
Continue nebulizer therapy
Continue oxygen supplementation-baseline
Encourage incentive spirometry
Hopefully discharge in the next 24 hours. Patient feels improved.
Will follow
Assessment
-
84-year-old woman with history of COPD, chronic hypoxemic respiratory failure, multiple other cardiac comorbidities, admitted with shortness of breath and worsening hypoxemia. Found to be bronchospastic diagnosed with acute exacerbation of COPD.
Chest x-ray was abnormal with a left lower lobe abnormality. We were consulted for ongoing therapy and evaluation on 12/30/2024.
Acute exacerbation of COPD
Acute on chronic hypoxemic respiratory failure usually on 2 L-now up to 8 L nasal cannula.
Chest x-ray 12/28/2024: Left lower lobe infiltrate cannot rule out pneumonia versus atelectasis from patient's aortic aneurysm.
CT chest 09/28/2024: Biapical pleural-parenchymal scarring and mild centrilobular emphysema. Compressive atelectasis within the left lower lobe secondary to patient's aneurysm. No pleural effusions or pneumothorax.
Conditions present prior to admission:
Orthostasis
COPD/emphysema
Follows up Dr. Ling last visit 08/2024
Poor inhaler technique
On DuoNebs 3 times a day
Baseline oxygen requirements 3 L with ambulation.
Spirometry 05/13/2023: FEV1 0.83 L / 54%, FVC 58%, FEV1/FVC ratio 63%. Moderate COPD
s/p TEVAR at [facility] 2016
Decreased left lung volume due to aortic stent graft position
Severe lifestyle-limiting right leg claudication and PVD s/p right SFA stent and left.
R breast cancer s/p lumpectomy, reconstruction with advanced flap, sentinel lymph node biopsy 08/02/17
Grade 1, Stage Ia,T1c, N0, M0 invasive lobular carcinoma.
Completed radiation September 2017, patient refused Letrozole
HTN
Atrial fibrillation on chronic anticoagulation.
Hypercholesterolemia
Heart failure with preserved ejection fraction.
2D echo 07/12/2021: EF 60%, normal LV S LVSF, mild LVH, normal diastolic function, trace MR/TR, PASP 20-25 mmHg
PVD
Cholecystectomy
Chronic hypercapnic respiratory failure/obstructive sleep apnea on PAP therapy - Trilogy
Former smoker 50 pack years-quit in 2008.
Assessment and plan:
Clinical picture suggestive of acute exacerbation of COPD-possibly triggered by pneumonia.
Clinically feels better today 12/30/2024 to my evaluation.
Not bronchospastic on exam.
Bibasilar crackles noted-possibly chronic.
Chest x-ray reviewed patient has significant left lower lobe abnormality possibly from aortic aneurysm. But definitely chest x-ray looks worse compared to prior.
Currently afebrile
No significant leukocytosis
Continue to monitor.
-
Not unreasonable to treat for 5 to 7 days with antibiotics. Continue IV antibiotics for today and if clinically improved can consider transition to orals tomorrow.
Sputum culture if able-not producing
Blood culture will be sent If patient develops fevers
Microbiology so far negative: Influenza and COVID checked negative.
Has not been able to produce a sputum
-
Continue therapy for acute exacerbation of COPD.
IV corticosteroids-hopefully can transition to oral prednisone tomorrow. 40 mg and decrease by 48 hours to off.
DuoNebs-continue.
Patient not on inhalers in the outpatient as she has poor inhaler technique.
Baseline oxygen is 3 L with ambulation, initially on 8 L-currently down to 2 L at rest.
Incentive spirometry encouraged
-
Patient does have history of diastolic dysfunction
Moderately elevated proBNP
At this point no evidence for volume overload but will need to follow closely.
Continue anticoagulation-? History of A-fib.
Continue telemetry monitoring
-
Chronic hypercapnic respiratory failure.
Mental status at baseline
Patient may use her Trilogy while in the hospital if she can bring it.
If not available may use BiPAP temporarily while in the hospital- monitor metabolic alkalosis.
Avoid sedatives
-
Physical therapy/Occupational Therapy.
-
Will follow
-
Follow-up with Dr. Ling after DC
Subjective Data
-
Date of Service:
Date of Service: December 31, 2024
Chief Complaint: Pulmonary Follow Up (Acute exacerbation of COPD/pneumonia)
Subjective:
No new complaints
Continues to report some intermittent coughing
Review of Systems
Cardiopulmonary: Dyspnea (none at rest)
GI: Abdominal Pain (n) and Nausea (n)
Neuro: Headache (n)
Objective Data
Data Reviewed
Vital Signs / I&O / Oxygen:
Vital Signs
Temp Pulse Resp BP Pulse Ox
98.2 F 69 16 141/70 94
12/31/24 11:00 12/31/24 11:00 12/31/24 11:00 12/31/24 11:00 12/31/24 11:00
Intake and Output
12/30/24 12/31/24 01/01/25
06:59 06:59 06:59
Intake Total 1140 / 1140 1020 / 1020
Balance 1140 / 1140 1020 / 1020
SaO2 94
Nasal Cannula flow liters per 2
minute
Physical Exam
General: Comfortable
HEENT: Normocephalic
Cardiovascular: S1-S2
Respiratory: Wheeze (improved)
GI: Soft and Non Distended
Neurology: Awake
Skin: Warm
Labs/Micro/Reports
Lab Data
12/31/24 06:46
Microbiology
12/29/24 09:14 Nasal Swab Influenza Types A & B (TAMICA) - Final
Negative for Influenza A & B, NAAT
Negative results must be combined with clinical observations
and patient history.
Nucleic Acid Amplification test (NAAT)performed on the
[employer] NOW platform.
[2024-12-31 14:05] LABS: Glucose - Point of Care 197 mg/dl (70-99)
[2024-12-31 14:19] LABS: Potassium 4.9 mmol/L (3.5-5.1)
[2024-12-31 15:03] LABS: Glucose - Point of Care 149 mg/dl (70-99)
[2024-12-31] MEDS: VISBIOME 2 CAP PO (18:04)
[2024-12-31 18:16] LABS: Glucose - Point of Care 137 mg/dl (70-99)
[2025-01-01 03:07] VITALS: BP 158/84
[2025-01-01 05:52] LABS: Hematocrit 40.1 % (37.0-47.0); Hemoglobin 13.2 g/dL (12.0-16.0); Mean Corp Hgb Conc. 32.9 g/dL (33.0-37.0); Mean Corpuscular Volume 93.0 fL (81.0-99.0); Platelet Count 112 10^3/uL (130-400); Red Cell Dist. Width 14.9 % (11.5-14.5)
[2025-01-01 06:02] LABS: Blood Urea Nitrogen 39 mg/dl (7-17); Calcium 9.1 mg/dl (8.4-10.2); Carbon Dioxide 33 mmol/L (22-30); Chloride 97 mmol/L (98-107); Estimated Creatinine Clearance 38 ml/min; Glucose 85 mg/dl (70-99); Magnesium 2.0 mg/dl (1.6-2.3); Potassium 5.1 mmol/L (3.5-5.1); Sodium 134 mmol/L (135-145); eGFR > 60.00
[2025-01-01] MEDS: DUONEB 3 ML INH ×2 (07:41→11:14)
[2025-01-01 07:53] VITALS: BP 118/57
[2025-01-01] MEDS: VITAMIN D3 (cholecalciferol) 50 MCG PO (09:16)
[2025-01-01] MEDS: VISBIOME 2 CAP PO (09:16)
[2025-01-01] MEDS: DELTASONE 40 MG PO (09:16)
[2025-01-01] MEDS: ZITHROMAX 500 MG PO (09:16)
[2025-01-01] MEDS: LIPITOR 10 MG PO (09:16)
[2025-01-01] MEDS: ELIQUIS 2.5 MG PO (09:16)
[2025-01-01] MEDS: TOPROL XL 100 MG PO (09:16)
--- NOTE | 2025-01-01 09:57 | W.PN.HOSP.TC ---
Today's Communication/Plan
-
Discharge home today with HHN on oral prednisone, antibiotics, probiotics, Lasix and discontinue spironolactone
Assessment / Plan
Assessment / Plan
Impression:
84-year-old female complaining of worsening shortness of breath over the past 3 days. She has history of COPD typically wears 2 L of oxygen 24-hour dependent however her oxygen was noted to be in the 70% along with labored breathing. She was
placed on nonrebreather in the ER then changed to mid flow nasal cannula at 8 L with oxygen saturation 94%, admitted to the hospital and started on IV steroid.
Chest x-ray shows pneumonia.
Wean down oxygen to 6 L/min
12/29
Patient back to baseline 2 L
12/31
Significant hyperkalemia at 6.2, status post Lokelma insulin/dextrose-improved.
01/01
Will discontinue Aldactone and switch to Lasix on discharge.
Patient back to baseline oxygen.
Will be discharged home with home health care.
Assessment/plan:
Acute on chronic hypoxic/hypercapnic respiratory failure, secondary to acute COPD exacerbation/pneumonia
Patient presented with shortness of breath worsening over the last 3 days
Patient wears 2 L of oxygen at the time, was hypoxic on presentation to 80s, received DuoNebs.
Patient was tachypneic.
Initially placed on nonrebreather in the ER and was feeling better.
Chest x-ray done in the ER shows findings suggesting mild left lower lobe pneumonia
Negative influenza A&B, pending Covid
Started on IV steroid, DuoNebs
Pulmonary consulted.
Will start Rocephin/Zithromax
12/29
Patient back to baseline 2 L
12/31
Significant hypoxia with ambulation, back to baseline at rest
01/01
Back to baseline oxygen.
Discharge home with home health care
Significant hyperkalemia.
Potassium level 6.2.
Status post Lokelma insulin/dextrose
Repeat potassium level shows improvement
EKG shows no acute changes.
Will start Lasix and discontinue Aldactone on discharge
Chronic diastolic CHF
No acute exacerbation.
Continue metoprolol
Switch Aldactone with Lasix secondary to hyperkalemia
CKD 3b
Avoid nephrotoxins.
Monitor creatinine
History of hypertension
Continue home meds
History of paroxysmal A-fib.
Continue Eliquis
Chronic thrombocytopenia.
Monitor platelet
TEVAR at [facility] 2016
right SFA stent and PTCA popliteal 2013
CODE STATUS: Full code
DVT prophylaxis: Eliquis
Diet: cardiac diet
Family communication: Discussed with daughter at bedside
Disposition: Discharge home today on oral prednisone, antibiotics, probiotics, Lasix and discontinue spironolactone
Total time spent on today's encounter was 65 minutes which included time spent in counseling the patient/family regarding diagnosis and treatment plan as listed above, goals of care, and symptom management. Case was discussed with nursing staff,
specialists, and care coordinators/case management. All labs and imaging personally reviewed by me. Remainder the time spent in detailed review of previous records, lab data, imaging, and other medical provider documentation.
Anticipated Discharge: Today
Subjective/Interval History
-
Date of Service: January 01, 2025
Patient seen and examined at bedside, denies any chest pain, improved coughing and shortness of breath, no abdominal pain, no nausea, no vomiting, no diarrhea or constipation.
Objective Data
-
Labs:
Laboratory Results
12/31/24 12/31/24 01/01/25
21:46 22:06 05:18
WBC 8.6
Hgb 13.2
Hct 40.1
Plt Count 112 L
Sodium Cancelled Cancelled 134 L
Potassium Cancelled Cancelled 5.1
Chloride Cancelled Cancelled 97 L
Carbon Dioxide Cancelled Cancelled 33 H
BUN Cancelled Cancelled 39 H
Creatinine Cancelled Cancelled 0.8
Glucose Cancelled Cancelled 85
Calcium Cancelled Cancelled 9.1
Vital Signs:
Vital Signs
Temp Pulse Resp BP Pulse Ox
97.7 F 78 18 118/57 97
01/01/25 07:53 01/01/25 07:53 01/01/25 07:53 01/01/25 07:53 01/01/25 07:53
I&O
12/31/24 01/01/25 01/02/25
06:59 06:59 06:59
Intake Total 1020 / 1020 180 / 180
Balance 1020 / 1020 180 / 180
Physical Exam
-
General: Well Developed, Well Nourished, No Apparent Distress and Comfortable
HEENT: Normocephalic, Atraumatic, Moist Mucous Membranes, No Ptosis, PERRLA and Nose Appears Normal
Respiratory: Rales, Rhonchi and Non Labored Respirations
Cardiac: Regular Rhythm and S1/S2
Breast: Deferred by me
GI: Soft, Nontender, Nondistended and Normal Bowel Sounds
Genito-urinary: No Costovertebral Tender
Musculoskeletal: No Clubbing, No Cyanosis and No Edema
Skin: Warm
Neuro: Awake, Alert, Oriented, AO x 3 and No Motor Deficits
Psych: Calm
--- NOTE | 2025-01-01 10:20 | W.DCSUMMARY ---
Discharge Summary
Discharge Data
Date of Admission: 12/28/24
Date of Discharge: 01/01/25
Total time spent discharging patient (in min): 40
-
Pending Results: No
Hospital Course
Hospital course
84-year-old female complaining of worsening shortness of breath over the past 3 days. She has history of COPD typically wears 2 L of oxygen 24-hour dependent however her oxygen was noted to be in the 70% along with labored breathing. She was
placed on nonrebreather in the ER then changed to mid flow nasal cannula at 8 L with oxygen saturation 94%, admitted to the hospital and started on IV steroid.
Chest x-ray shows pneumonia.
Wean down oxygen to 6 L/min
12/29
Patient back to baseline 2 L
12/31
Significant hyperkalemia at 6.2, status post Lokelma insulin/dextrose-improved.
01/01
Will discontinue Aldactone and switch to Lasix on discharge.
Patient back to baseline oxygen.
Will be discharged home with home health care.
During hospitalization patient was treated from the following
Acute on chronic hypoxic/hypercapnic respiratory failure, secondary to acute COPD exacerbation/pneumonia
Patient presented with shortness of breath worsening over the last 3 days
Patient wears 2 L of oxygen at the time, was hypoxic on presentation to 80s, received DuoNebs.
Patient was tachypneic.
Initially placed on nonrebreather in the ER and was feeling better.
Chest x-ray done in the ER shows findings suggesting mild left lower lobe pneumonia
Negative influenza A&B, pending Covid
Started on IV steroid, DuoNebs
Pulmonary consulted.
Will start Rocephin/Zithromax
12/29
Patient back to baseline 2 L
12/31
Significant hypoxia with ambulation, back to baseline at rest
01/01
Back to baseline oxygen.
Discharge home with home health care
Significant hyperkalemia.
Potassium level 6.2.
Status post Lokelma insulin/dextrose
Repeat potassium level shows improvement
EKG shows no acute changes.
Will start Lasix and discontinue Aldactone on discharge
Chronic diastolic CHF
No acute exacerbation.
Continue metoprolol
Switch Aldactone with Lasix secondary to hyperkalemia
CKD 3b
Avoid nephrotoxins.
Monitor creatinine
History of hypertension
Continue home meds
History of paroxysmal A-fib.
Continue Eliquis
Chronic thrombocytopenia.
Monitor platelet
TEVAR at [facility] 2016
right SFA stent and PTCA popliteal 2013
CODE STATUS: Full code
DVT prophylaxis: Eliquis
Diet: cardiac diet
Family communication: Discussed with daughter at bedside
Disposition: Discharge home today on oral prednisone, antibiotics, probiotics, Lasix and discontinue spironolactone
Total time spent on today's encounter was 40 minutes which included time spent in counseling the patient/family regarding diagnosis and treatment plan as listed above, goals of care, and symptom management. Case was discussed with nursing staff,
specialists, and care coordinators/case management. All labs and imaging personally reviewed by me. Remainder the time spent in detailed review of previous records, lab data, imaging, and other medical provider documentation.
Anticipated Discharge: Today
Discharge Plan
-
Patient Disposition: Home with Home Care
Discharge Diagnosis/Procedures: Acute on chronic hypoxic/hypercapnic respiratory failure,
acute COPD exacerbation
pneumonia
Hyperkalemia
Chronic diastolic CHF
Paroxysmal A-fib
Diet: 2 Gram Sodium
Additional Diets: Low potassium diet
Activity: With assistance and As tolerated
Other Services: PT and OT
Referrals:
PCP [Other] - in one week
Justino Ling MD [Active, Pulmonary Medicine] - in three to four weeks
Referral Note: May see [facility] post hospital stay
Prescriptions:
New
(DME) basal metabolic panel
See Rx Instructions .Route .MEDSUPPLY Qty: 1 0RF
Rx Instructions:
after one week.
Diagnosis: Hyperkalemia
prednisone 10 mg tablets,dose pack
10 mg PO DIRECTED Qty: 21 0RF
cefuroxime axetil 500 mg tablet
500 mg PO BID 5 Days Qty: 10 0RF
furosemide 20 mg Tablet
20 mg PO DAILY Qty: 30 0RF
azithromycin 250 mg Tablet
500 mg PO DAILY Qty: 5 0RF
Probiotic 100 billion cell capsule
1 cap PO DAILY Qty: 30 0RF
Eliquis 2.5 mg tablet
2.5 mg PO BID Qty: 30 0RF
Continued
Prolia 60 MG/ML syringe
60 mg SQ Q6M
Patient Comments:
pt takes every 6 months, cannot remember when it was taken last
atorvastatin 10 MG tablet
10 mg PO DAILY
metoprolol succinate 100 MG tablet extended release 24 hr
100 mg PO DAILY
cholecalciferol (vitamin D3) 2,000 UNITS tablet
2,000 units PO DAILY
amlodipine 10 MG tablet
10 mg PO DAILY
albuterol sulfate
3 ml inhalation TID
Discontinued
spironolactone 25 MG tablet
25 mg PO DAILY 30 Days Qty: 30 0RF
Eliquis 5 MG tablet
5 mg PO DAILY
Rx Instructions:
Patient reports she takes Eliquis once a day per pulmonology
Discharge Orders:
Discharge Patient (As Directed); Ordered 01/01/25
Ordered By: Meri Lundberg
Discharge Date and Time
Print Language: AZERI
--- NOTE | 2025-01-01 11:04 | CM ---
Addendum entered by Rosa Diallo 01/01/25 11:07:
PCP: Macarena Patrick
Pharmacy: [facility]
Original Note:
Patient seen at bedside
Discharge today- IMM explained & signed. In chart
IA completed
Lives in an in law suite attached to daughter home, [address]
plof: Independent
DME: home oxygen ([employer]), [employer], nebulizer
Denies vn/rehab in past
PT rec HH - Options reviewed - would like [facility]-notified liaison to enter referral
PLAN: home with [facility] today
daughter to transport
[2025-01-01] MEDS: ROCEPHIN 1000 MG IV (11:09)
[2025-01-01] MEDS: STERILE WATER FOR INJECTION 10 ML IV (11:10)
[2025-01-01] MEDS: LASIX 20 MG PO (11:10)
[2025-01-01 11:26] VITALS: BP 123/59
--- NOTE | 2025-01-01 11:53 | W.PN.PUL3 ---
Today's Communication / Plan
-
Discharge planning
Prednisone taper
Antibiotics for 7 days
Outpatient pulmonary follow-up
Sign off
Assessment
-
84-year-old woman with history of COPD, chronic hypoxemic respiratory failure, multiple other cardiac comorbidities, admitted with shortness of breath and worsening hypoxemia. Found to be bronchospastic diagnosed with acute exacerbation of COPD.
Chest x-ray was abnormal with a left lower lobe abnormality. We were consulted for ongoing therapy and evaluation on 12/30/2024.
Acute exacerbation of COPD
Acute on chronic hypoxemic respiratory failure usually on 2 L-now up to 8 L nasal cannula.
Chest x-ray 12/28/2024: Left lower lobe infiltrate cannot rule out pneumonia versus atelectasis from patient's aortic aneurysm.
CT chest 09/28/2024: Biapical pleural-parenchymal scarring and mild centrilobular emphysema. Compressive atelectasis within the left lower lobe secondary to patient's aneurysm. No pleural effusions or pneumothorax.
Conditions present prior to admission:
Orthostasis
COPD/emphysema
Follows up Dr. Ling last visit 08/2024
Poor inhaler technique
On DuoNebs 3 times a day
Baseline oxygen requirements 3 L with ambulation.
Spirometry 05/13/2023: FEV1 0.83 L / 54%, FVC 58%, FEV1/FVC ratio 63%. Moderate COPD
s/p TEVAR at [facility] 2016
Decreased left lung volume due to aortic stent graft position
Severe lifestyle-limiting right leg claudication and PVD s/p right SFA stent and left.
R breast cancer s/p lumpectomy, reconstruction with advanced flap, sentinel lymph node biopsy 08/02/17
Grade 1, Stage Ia,T1c, N0, M0 invasive lobular carcinoma.
Completed radiation September 2017, patient refused Letrozole
HTN
Atrial fibrillation on chronic anticoagulation.
Hypercholesterolemia
Heart failure with preserved ejection fraction.
2D echo 07/12/2021: EF 60%, normal LV S LVSF, mild LVH, normal diastolic function, trace MR/TR, PASP 20-25 mmHg
PVD
Cholecystectomy
Chronic hypercapnic respiratory failure/obstructive sleep apnea on PAP therapy - Trilogy
Former smoker 50 pack years-quit in 2008.
Assessment and plan:
Clinical picture suggestive of acute exacerbation of COPD-possibly triggered by pneumonia.
Clinically improved since admission.
Not bronchospastic on exam. 01/01/2025
Bibasilar crackles noted-possibly chronic.
Chest x-ray reviewed patient has significant left lower lobe abnormality possibly from aortic aneurysm. But definitely chest x-ray looks worse compared to prior.
Afebrile.
No significant leukocytosis
For discharge today
-
Not unreasonable to treat for 5 to 7 days with antibiotics. Continue IV antibiotics for today and if clinically improved can consider transition to orals tomorrow.
Microbiology so far negative: Influenza and COVID checked negative.
Has not been able to produce a sputum
-
Continue therapy for acute exacerbation of COPD.
Continue prednisone-. 40 mg and decrease by 48 hours to off.
DuoNebs-continue while in the hospital-restart usual regimen after discharge.
Patient not on inhalers in the outpatient as she has poor inhaler technique.
Baseline oxygen is 3 L with ambulation, initially on 8 L-currently down to 2 L at rest.
Incentive spirometry encouraged
-
Patient does have history of diastolic dysfunction
Moderately elevated proBNP
At this point no evidence for volume overload but will need to follow closely.
Continue anticoagulation-? History of A-fib.
Continue telemetry monitoring
-
Chronic hypercapnic respiratory failure.
Mental status at baseline
Patient may use her Trilogy while in the hospital if she can bring it.
If not available may use BiPAP temporarily while in the hospital- monitor metabolic alkalosis.
Avoid sedatives
-
Physical therapy/Occupational Therapy.
-
Will follow
-
Discharge planning for today.
Follow-up with Dr. Ling after DC
Sign off
Subjective Data
-
Date of Service:
Date of Service: January 01, 2025
Chief Complaint: Pulmonary Follow Up (Acute exacerbation of COPD/pneumonia)
Subjective:
Feels better
On 2 L
Denies shortness of breath with ambulation to the bathroom
Objective Data
Data Reviewed
Vital Signs / I&O / Oxygen:
Vital Signs
Temp Pulse Resp BP Pulse Ox
97.4 F 71 16 123/59 94
01/01/25 11:26 01/01/25 11:26 01/01/25 11:26 01/01/25 11:26 01/01/25 11:26
Intake and Output
12/31/24 01/01/25 01/02/25
06:59 06:59 06:59
Intake Total 1020 / 1020 180 / 180
Balance 1020 / 1020 180 / 180
SaO2 94
Nasal Cannula flow liters per 3
minute
Physical Exam
General: Comfortable
HEENT: Normocephalic
Cardiovascular: S1-S2
Respiratory: Clear
GI: Soft and Non Distended
Neurology: Awake
Skin: Warm
Labs/Micro/Reports
Lab Data
01/01/25 05:18
01/01/25 05:18
Microbiology
12/29/24 09:14 Nasal Swab Influenza Types A & B ([facility]) - Final
Negative for Influenza A & B, NAAT
Negative results must be combined with clinical observations
and patient history.
Nucleic Acid Amplification test (NAAT)performed on the
[employer] platform.
--- NOTE | 2025-01-01 12:38 | VNURNOTE ---
Home Health Liaison met with patient at bedside to discuss [facility] nurse/therapy, visits, schedule and homebound status. Patient is agreeable and understands that visits at home will be 2-3 x per week to assess and teach medical management. She
confirms she has home 02 with [facility].
Patient is aware that [facility] will contact them for start of care in 1-2 days after discharge from . Provided contact number for [facility].
[facility] referral completed in [facility].
== END 2025-01-01 14:07 | disposition home health service (06) | DRG 193 ==
LOC: 3 WEST ACU 18:53
PROVIDERS: Clinical Nurse Specialist Family Health; Emergency Medicine; ADMITTING PHYSICIAN Internal Medicine; ATTENDING PHYSICIAN General Practice; CONSULT PHYSICIAN Internal Medicine Critical Care Medicine; EMERGENCY PHYSICIAN Emergency Medicine
DX: J18.9 Pneumonia, unspecified organism (principal); I26.99 Other pulmonary embolism without acute cor pulmonale; I50.33 Acute on chronic diastolic (congestive) heart failure; J96.21 Acute and chronic respiratory failure with hypoxia; J96.22 Acute and chronic respiratory failure with hypercapnia; J44.1 Chronic obstructive pulmonary disease with (acute) exacerbation; I13.0 Hypertensive heart and chronic kidney disease with heart failure and stage 1 through stage 4 chronic kidney disease, or unspecified chronic kidney disease; J98.11 Atelectasis; N17.9 Acute kidney failure, unspecified; J44.0 Chronic obstructive pulmonary disease with (acute) lower respiratory infection; E87.5 Hyperkalemia; I48.0 Paroxysmal atrial fibrillation; N18.32 Chronic kidney disease, stage 3b; D69.6 Thrombocytopenia, unspecified; I27.20 Pulmonary hypertension, unspecified; Z85.828 Personal history of other malignant neoplasm of skin; I73.9 Peripheral vascular disease, unspecified; Z88.6 Allergy status to analgesic agent; Z91.040 Latex allergy status; Z88.0 Allergy status to penicillin; Z88.7 Allergy status to serum and vaccine; Z92.3 Personal history of irradiation; G47.33 Obstructive sleep apnea (adult) (pediatric); E78.00 Pure hypercholesterolemia, unspecified; E87.6 Hypokalemia; F17.200 Nicotine dependence, unspecified, uncomplicated; I25.10 Atherosclerotic heart disease of native coronary artery without angina pectoris; M81.0 Age-related osteoporosis without current pathological fracture; Z66 Do not resuscitate; Z79.01 Long term (current) use of anticoagulants; Z79.899 Other long term (current) drug therapy; Z99.81 Dependence on supplemental oxygen; Z11.52 Encounter for screening for COVID-19
CPT/HCPCS: 71045; 80048; 80053; 82962; 83735; 83880; 84132; 84484; 85025; 85027; 87502; 87811; 93005; 94640; 94660; 96374; 97163; 97166; 97530; 99285

== ENCOUNTER → 2025-01-08 14:57 | Outpatient (REF) | payer MEDICARE, SELFPAY ==
[2025-01-08 15:55] LABS: Hematocrit 41.1 % (37.0-47.0); Hemoglobin 13.1 g/dL (12.0-16.0); Mean Corp Hgb Conc. 31.9 g/dL (33.0-37.0); Mean Corpuscular Volume 95.1 fL (81.0-99.0); Nucleated Red Blood Cells % 0 %; Platelet Count 101 10^3/uL (130-400); Red Cell Dist. Width 14.4 % (11.5-14.5)
[2025-01-08 16:00] LABS: Blood Urea Nitrogen 37 mg/dl (7-17); Calcium 9.8 mg/dl (8.4-10.2); Carbon Dioxide 34 mmol/L (22-30); Chloride 96 mmol/L (98-107); Glucose 212 mg/dl (70-99); Potassium 3.8 mmol/L (3.5-5.1); Sodium 134 mmol/L (135-145); eGFR 54.87
== END ==
LOC: CLAB 14:57
PROVIDERS: ATTENDING PHYSICIAN Nurse Practitioner Adult Health
DX: D69.6 Thrombocytopenia, unspecified (principal); E87.5 Hyperkalemia
CPT/HCPCS: 36415; 80048; 85025

== ENCOUNTER → 2025-01-19 10:29 | Outpatient (REF) | payer MEDICARE, SELFPAY ==
[2025-01-19 12:34] LABS: Calcium 8.9 mg/dl (8.4-10.2); Carbon Dioxide 30 mmol/L (22-30); Chloride 100 mmol/L (98-107); Glucose 145 mg/dl (70-99); Potassium 4.9 mmol/L (3.5-5.1); Sodium 132 mmol/L (135-145); eGFR 48.94
[2025-01-19 12:47] LABS: Blood Urea Nitrogen 32 mg/dl (7-17)
== END ==
LOC: CLAB 10:29
PROVIDERS: ATTENDING PHYSICIAN Family Medicine
DX: E87.5 Hyperkalemia (principal)
CPT/HCPCS: 36415; 80048

== ENCOUNTER → 2025-02-18 13:11 | Outpatient (REF) | payer MEDICARE, SELFPAY ==
[2025-02-18 13:58] LABS: Blood Urea Nitrogen 30 mg/dl (7-17); Calcium 9.2 mg/dl (8.4-10.2); Carbon Dioxide 27 mmol/L (22-30); Chloride 102 mmol/L (98-107); Glucose 110 mg/dl (70-99); Potassium 5.1 mmol/L (3.5-5.1); Sodium 131 mmol/L (135-145); eGFR 48.94
== END ==
LOC: CLAB 13:11
PROVIDERS: ATTENDING PHYSICIAN Family Medicine
DX: E87.5 Hyperkalemia (principal)
CPT/HCPCS: 36415; 80048